=== PATIENT | male | born 1995 | race Caucasian/White ===

== ENCOUNTER 2018-05-06 07:09 | Emergency (ER) | payer BC ==
[2018-05-06 07:23] VITALS: BP 153/78
--- NOTE | 2018-05-06 07:39 | UC ---
Skin Complaint HPI - HPI Summary HPI Summary: 22-year-old otherwise healthy male presents with several days of soreness around his umbilicus now becoming red. He has experienced swelling in the area of the belly button in the past but never to this extent. He denies any injury to the area and states that it gets a little worse when he lays flat. He denies fever, shakes chills, nausea or vomiting or abdominal pain. He has no urinary symptoms. - History of Current Complaint Chief Complaint: UCSkin Time Seen by Provider: 05/06/18 07:18 Stated Complaint: SKIN COMPLAINT Hx Obtained From: Patient Pain Intensity: 8 - Allergy/Home Medications Allergies/Adverse Reactions: Allergies Allergy/AdvReac Type Severity Reaction Status Date / Time cefuroxime [From Ceftin] Allergy Hives Verified 05/06/18 07:21 Review of Systems Constitutional: Negative Skin: Rash Respiratory: Negative Cardiovascular: Negative All Other Systems Reviewed And Are Negative: Yes PMH/Surg Hx/FS Hx/Imm Hx Previously Healthy: Yes - Surgical History Surgical History: Yes Surgery Procedure, Year, and Place: LEFT HAND SURGERY. hernia repair as child - Family History Known Family History: Negative: Diabetes - Social History Occupation: Employed Full-time - Works night time babysitter Alcohol Use: None Substance Use Type: None Smoking Status (MU): Former Smoker Physical Exam Triage Information Reviewed: Yes Appearance: Well-Appearing, No Pain Distress Vital Signs: Initial Vital Signs Temp 97.7 F 05/06/18 07:18 Pulse 95 05/06/18 07:18 Resp 18 05/06/18 07:18 BP 153/78 05/06/18 07:18 Pulse Ox 100 05/06/18 07:18 Vital Signs Reviewed: Yes ENT: Positive: Normal ENT inspection Neck: Positive: Supple Respiratory: Positive: Chest non-tender, Normal breath sounds Cardiovascular: Positive: RRR Abdomen Description: Positive: Soft, Other: - Tiny area of swelling in the center of the umbilicus. There is surrounding erythema, tenderness with mild induration circumferentially around the umbilicus. Total area in diameter is approximately 4 cm. Negative: Distended, Guarding Musculoskeletal Exam: Normal Skin Exam: Other - Erythema, induration surrounding the umbilicus as indicated above Course/Dx - Course Course Of Treatment: Patient potentially has urachal cyst and now has resulting cellulitis/omphalitis. Treat with antibiotic and recheck in 2 days. - Differential Diagnoses - Skin Complaint Differential Diagnoses: Other - Umbilical hernia, urachal cyst, cellulitis - Diagnoses Provider Diagnoses: Cellulitis of the umbilicus Discharge - Sign-Out/Discharge Documenting (check all that apply): Patient Departure All imaging exams completed and their final reports reviewed: No Studies - Discharge Plan Condition: Improved Disposition: HOME Prescriptions: Clindamycin Cap(NF) [Clindamycin Cap 300 mg Cap(NF)] 300 mg PO Q6H #40 cap Patient Education Materials: Cellulitis (ED) Referrals: [facility] [Outside] [facility] [place] [place] [facility] [place]Outside] Additional Instructions: Your blood pressure was elevated today. Schedule appointment with the doctor to have this rechecked within one week. Warm compresses to the area of soreness/redness. Have wound rechecked in 2 days ' time or sooner if you are experiencing fevers or redness outside the boundaries marked here in the urgent care. Go to an ER if you are experiencing high fevers, nausea, worsening, new symptoms or other concerns. There may be a cyst in this area called a Urachal cyst that could cause this -- if it recurs this may need to be addressed by a surgeon. - Billing Disposition and Condition Condition: IMPROVED Disposition: Home
== END 2018-05-06 07:38 | disposition home or self-care (01) ==
LOC: UCCORT 07:09
DX: L03.316 Cellulitis of umbilicus (principal); Z88.1 Allergy status to other antibiotic agents
CPT/HCPCS: 99212; G0463